=== PATIENT | female | born 1930 | race Caucasian/White ===

== ENCOUNTER 2018-09-08 16:20 | Inpatient (IN) ==
[2018-09-08] MEDS ORDERED: IOPAMIDOL 100 ML BOTTLE IV ONE (16:21)
[2018-09-08] MEDS ORDERED: PANTOPRAZOLE 40 MG VIAL IV ONE ×2 (16:26→20:47)
[2018-09-08] MEDS: HYDROmorphone 2 MG/ML VIAL IV PRN ×3 (16:35→23:59)
--- NOTE | 2018-09-08 16:38 | Emergency Department Note ---
Abdominal Pain HPI - General Source: patient, family Mode of arrival: ambulatory Limitations: no limitations <Asuncion Griggs - Last Filed: 09/08/18 16:36> <KomalClaudia jarrett Mukul - Last Filed: 09/08/18 22:09> - General Chief Complaint: Abdominal Pain Stated Complaint: abd pain Time Seen by Provider: 09/08/18 16:26 - History of Present Illness HPI Narrative: 88-year-old female presents with abdominal pain for the last several months but worse over the last few days. States she has burning from her mouth down to her rectum. Severe epigastric burning. She does see a GI specialist but has not actually seen them, they state that they have called in some lab work and put her on some Prevacid but it is not helping. She also fell August 23 and has a right humerus fracture. She states her arm pain is manageable but the GI tract pain is severe and is so bad that she does not want to live anymore. States she just cannot take this pain. She was brought in by her son who is concerned about her continued comments about wanting to leave this world due to pain.She does state that she is tired from it although she does not have a specific specific plan to harm herself she states she just does not care whether she may consider not because she is 88 years old and she is tired of living and so much pain. No fever or chills. No nausea, vomiting, or diarrhea. States sometimes at night she will vomit but has not recently. When she vomits she describes it as her she is chocolate syrup. She is supposed to see her GI provider on September 10 although she is not sure if that appointment is actually set up. (Asuncion Griggs) - Related Data Home Medications Medication Instructions Recorded Confirmed Lacto.acidophilus-Bif.animalis PO QDAY 01/04/17 01/04/17 amlodipine 2.5 mg tablet 2.5 mg PO QDAY 01/04/17 09/08/18 cholecalciferol (vitamin D3) PO QDAY 01/04/17 01/04/17 ferrous gluconate 324 mg (36 mg 324 mg PO QDAY 01/04/17 09/08/18 iron) tablet irbesartan 300 1 tab PO QDAY 07/20/17 03/24/19 mg-hydrochlorothiazide 12.5 mg tablet magnesium 1 tab PO QDAY 01/04/17 09/08/18 potassium PO 01/04/17 01/04/17 vitamin B complex tablet 1 tab-cap PO QDAY 01/04/17 09/08/18 Allergies Allergy/AdvReac Type Severity Reaction Status Date / Time Sulfa (Sulfonamide Allergy Unknown Unknown Verified 09/08/18 16:27 Antibiotics) Review of Systems All systems ED: reviewed and negative except as stated. <Asuncion Griggs - Last Filed: 09/08/18 16:36> Abdominal Pain PMH - Past Medical History Medical history: Reports: hypertension, other (urinary tract infection) Family history: Reports: no significant family history - Social History Smoking status: Never smoker Alcohol use: Reports: None Drug use: Reports: none <Asuncion Griggs - Last Filed: 09/08/18 16:36> - Past Medical History [facility] Narrative: Medical History (Last Reviewed 01/30/17 @ 10:18 by Saida Lazcano RN) Mild mitral regurgitation (Chronic) Osteoporosis (Chronic) History of bladder infections (Chronic) Anemia (Chronic) Hay fever (Chronic) Bronchitis (Chronic) Tuberculosis (Chronic) Whooping cough (Chronic) Mumps (Chronic) Measles (Chronic) Chronic diastolic (congestive) heart failure (Chronic) Chronic kidney disease, stage II (mild) (Chronic) Unspecified asthma (Chronic) Hyperlipidemia (Chronic) Hypertension (Chronic) Bladder pain (Acute) Urinary tract infection (Acute) Past Surgical History (Last Reviewed 01/30/17 @ 10:18 by Saida Lazcano RN) History of bladder surgery (Chronic ~2008) History of uterine suspension procedure (Acute) History of appendectomy (Chronic) History of tonsillectomy (Chronic) (Asuncion Griggs) Physical Exam Limitations: no limitations General appearance: alert Head: atraumatic, normocephalic, normal inspection Eye: Present: normal appearance. Absent: conjunctival injection ENT: mucous membranes moist Neck: Present: normal inspection, trachea midline Chest: Present: symmetric chest wall rise Respiratory: Present: normal lung sounds bilaterally. Absent: respiratory distress, rales/crackles, wheezes, stridor, accessory muscle use Cardiovascular: Present: regular rate, normal heart sounds Abdominal: Present: soft, normal bowel sounds. Absent: distention, tenderness, guarding, mass Extremities: Present: normal capillary refill. Absent: normal inspection (Right arm in sling and diffuse tenderness to right humerus, minimal edema.) Neurological: Present: alert, oriented X3 Psychiatric: Present: depressed. Absent: poor eye contact Skin: Present: warm, dry, intact <Asuncion Griggs - Last Filed: 09/08/18 16:36> Vital Signs Temperature 99.5 F H 09/08/18 16:21 Pulse Rate 97 H 09/08/18 16:21 Respiratory Rate 22 09/08/18 16:21 Blood Pressure 190/102 09/08/18 16:21 Pulse Oximetry (%) 95 09/08/18 16:21 Temperature 98.8 F 09/08/18 18:01 Pulse Rate 86 09/08/18 21:51 Respiratory Rate 19 09/08/18 21:46 Blood Pressure 161/72 09/08/18 21:46 Pulse Oximetry (%) 96 09/08/18 21:51 Abdominal Pain - Lab Data Lab results reviewed: Yes I reviewed the patient's lab results. Result diagrams: 09/08/18 16:42 09/08/18 16:42 - Radiology Data Radiology results reviewed: Yes I reviewed the patient's radiology results. <Claudia Sauceda - Last Filed: 09/08/18 22:09> - [facility] Narrative Medical decision making narrative: Asuncion Griggs provided pt history and assessment at the end of her shift, this provider to continue care. Pt is not on home O2 and arrives with 88% SOP2 on room air. Pt was with severe pain from epigastric to rectum. On palpation all pain is located subster nal/epigastric area. Pt was originally provided nasal cannula O2 at 2L which increased her to 98%. Pt was provided 0.5 mg Dilaudid coupled with 4 mg Zofran. This helped reduce patient's pain. She did need to be redosed an hour later, this dose helped her relax to the point she could sleep. Patient's vitals fairly steady heart rate 84, SPO2 98% on 2 L oxygen, blood pressure 170/75 Consulted with who advised he would keep her overnight in observation and follow-up with her in the morning. (Claudia Sauceda) - Lab Data Lab Results 09/08/18 09/08/18 09/08/18 Range/Units 16:42 16:42 17:37 WBC 7.9 (4.5-11.0) K/mcL RBC 3.39 L (4.00-5.20) M/mcL Hgb 10.1 L (12.0-15.0) g/dL Hct 31.1 L (36.0-48.0) % MCV 91.6 (80.0-100.0) fL MCH 29.9 (26.0-34.0) pg MCHC 32.6 (31.0-36.0) g/dL RDW 15.2 H (11.5-14.5) % Plt Count 282 (140-440) K/mcL MPV 8.5 (7.4-10.4) fL Gran % 76.8 (38.0-78.0) % Lymph % (Auto) 13.4 L (15.5-49.0) % [place] % (Auto) 8.0 (1.0-12.0) % Eos % (Auto) 1.4 (0.0-7.0) % Baso % (Auto) 0.4 (0.0-2.0) % Gran # 6.1 (1.8-8.0) K/mcL Lymph # (Auto) 1.1 L (1.5-4.8) K/mcL [place] # (Auto) 0.6 (0.1-0.9) K/mcL Eos # (Auto) 0.1 (0.0-0.7) K/mcL Baso # (Auto) 0 (0.0-0.3) K/mcL Sodium 139 (133-145) mmol/L Potassium 3.7 (3.3-5.1) mmol/L Chloride 97 (96-108) mmol/L Carbon Dioxide 32 H (22-30) mmol/L Anion Gap 10.0 (8-16) BUN 13 (8-23) mg/dl Creatinine 1.0 (0.6-1.1) mg/dl GFR Calculation 50 Glucose 127 H (70-105) mg/dL Calcium 10.0 (8.6-10.4) mg/dl Total Bilirubin 0.4 (0.0-1.0) mg/dL AST 17 (0-37) U/l ALT 14 (0-40) U/l Alkaline Phosphatase 73 (39-117) U/L Total Protein 7.1 (5.9-8.4) gm/dL Albumin 4.0 (3.2-5.2) gm/dL Globulin 3.1 (2.2-3.7) gm/dL Albumin/Globulin Ratio 1.3 (1.0-2.3) Lipase 41 (7-60) U/L Urine Color Yellow Urine Appearance Cloudy Urine pH 9.0 (5.0-9.0) Ur Specific [place] 1.014 (1.000-1.035) Urine Protein Neg (NEG) mg/dL Urine Glucose (UA) Negative (NEG) mg/dL Urine Ketones Neg (NEG) mg/dL Urine Occult Blood Neg (<0.03) mg/dL Urine Nitrate Neg (NEG) Urine Bilirubin Neg (NEG) mg/dL Urine Urobilinogen Neg (NEG) mg/dL Ur Leukocyte Esterase Neg (NEG) /uL Ur Culture Indicated? No - Radiology Data Chest x-ray: TECHNIQUE: AP chest x-ray,portable upright COMPARISON: Previous chest x-rays dated 04/26/2018, 04/15/2009 FINDINGS:Very large hiatal hernia. This is essentially unchanged. Lungs are negative. No parenchymal infiltrate or mass. No focal abnormality. Heart size and vascularity are within normal limits. No pulmonary edema or pulmonary congestion. Incidental note is made of right convex thoracic scoliosis IMPRESSION: 1. Large hiatal hernia 2. Right convex thoracic scoliosis 3. No acute abnormality Abdominal Ct with contrast: IMPRESSION: 1. Large fluid-filled hiatal hernia with most of the stomach in the chest 2. Two benign hepatic cysts. These are unchanged since 2016 3. Sigmoid diverticulosis. No evidence for diverticulitis 4. Severe lower lumbar degenerative facet arthropathy (Claudia Sauceda) Disposition <Asuncion Griggs - Last Filed: 09/08/18 16:36> Pt seen by STRINGED INSTRUMENT REPAIRER/PA only: No (Debone Supervisor) Time of Disposition: 22:09 <Claudia Sauceda - Last Filed: 09/08/18 22:09> Clinical Impression: Hiatal hernia, Hypoxia, Epigastric abdominal pain Disposition: Xfer As Outpt/Obs ([facility]) Condition: Fair
[2018-09-08] MEDS ORDERED: ONDANSETRON 4 MG/2 ML VIAL IV ONE ×2 (17:01→18:13)
[2018-09-08] MEDS ORDERED: 0.9 % SODIUM CHLORIDE 1,000 ML IV ONE ×2 (17:01→18:35)
[2018-09-08 17:17] LABS: Basophils # (Auto) 0 K/mcL (0.0-0.3); Basophils % (Auto) 0.4 % (0.0-2.0); Eosinophils # (Auto) 0.1 K/mcL (0.0-0.7); Eosinophils % (Auto) 1.4 % (0.0-7.0); Granulocytes % (Auto) 76.8 % (38.0-78.0); Lymphocytes # (Auto) 1.1 K/mcL (1.5-4.8); Lymphocytes % (Auto) 13.4 % (15.5-49.0); Mean Cell Volume 91.6 fL (80.0-100.0); Mean Corpuscular HGB Conc 32.6 g/dL (31.0-36.0); Monocytes # (Auto) 0.6 K/mcL (0.1-0.9); Platelet Count 282 K/mcL (140-440); RBC 3.39 M/mcL (4.00-5.20); Red Cell Distribution Width 15.2 % (11.5-14.5)
[2018-09-08 17:31] LABS: ALT/SGPT 14 U/l (0-40); Albumin/Globulin Ratio 1.3 (1.0-2.3); Alkaline Phosphatase 73 U/L (39-117); Blood Urea Nitrogen 13 mg/dl (8-23); Lipase 41 U/L (7-60)
[2018-09-08 18:23] LABS: Appearance,Urine CLOUDY; Bilirubin,Urine NEG (NEG); Color,Urine YELLOW; Glucose,Urine (UA) NEGATIVE (NEG); Leukocyte Esterase,Urine NEG /uL (NEG); Protein,Urine NEG (NEG); Specific Gravity,Urine 1.014 (1.000-1.035); Urine Blood NEG mg/dL (<0.03); Urobilinogen,Urine NEG (NEG)
--- NOTE | 2018-09-08 18:25 | XRay Report ---
INDICATION: Cough. Fever. TECHNIQUE: AP chest x-ray,portable upright COMPARISON: Previous chest x-rays dated 04/26/2018, 04/15/2009 FINDINGS:Very large hiatal hernia. This is essentially unchanged. Lungs are negative. No parenchymal infiltrate or mass. No focal abnormality. Heart size and vascularity are within normal limits. No pulmonary edema or pulmonary congestion. Incidental note is made of right convex thoracic scoliosis IMPRESSION: 1. Large hiatal hernia 2. Right convex thoracic scoliosis 3. No acute abnormality Interpreted and Authenticated by: Ez Puga 09/08/18
--- NOTE | 2018-09-08 20:02 | Cat Scan Report ---
CLINICAL INFORMATION: Severe abdominal pain COMPARISON: Previous examination dated 07/02/2015 TECHNIQUE: Axial images were obtained through the abdomen and pelvis. Sagittally and coronally reformatted images. 80 mL contrast material injected intravenously. Oral contrast material was not administered FINDINGS: Lung bases are negative. No parenchymal infiltrate or mass. No pleural fluid. No pericardial fluid. There is cardiomegaly. There is a large hiatal hernia with almost the entire stomach in the chest. The hiatal hernia is fluid-filled. Small bowel is negative. No mechanical small bowel obstruction. The colon is negative. There is sigmoid diverticulosis but no evidence for diverticulitis. No detectable colonic mass. No appendicitis. Liver is benign. There are two hepatic cysts. These are unchanged since 2016. No new hepatic mass. Liver contour is smooth. There is no ascites. Gallbladder is present. No calcified gallstones. No dilated bile ducts. Negative spleen. No splenomegaly. There are calcifications consistent with old granulomatous disease. Negative pancreas. No pancreatic mass. No peripancreatic abnormality. Negative adrenal glands. Kidneys are negative. No solid or cystic mass. No hydronephrosis or hydroureter. There is calcification of the abdominal aorta. No abdominal aortic aneurysm. There is calcification at the origin of the superior mesenteric artery but there is no evidence for stenosis. Uterus is present. There is no adnexal mass. No free intraperitoneal fluid. No localized fluid collections. There is no intra-abdominal abscess. No biliary or portal venous gas. There is no pneumatosis. No acute lumbar compression fracture. Sacrum and pelvis are negative. No fracture. No hip fracture. There is mild multilevel degenerative disc disease. There is severe degenerative facet arthropathy in the lower lumbar spine. IMPRESSION: 1. Large fluid-filled hiatal hernia with most of the stomach in the chest 2. Two benign hepatic cysts. These are unchanged since 2016 3. Sigmoid diverticulosis. No evidence for diverticulitis 4. Severe lower lumbar degenerative facet arthropathy The exam was performed using radiation dose optimization techniques including, but not limited to, automated exposure control, adjustment of the mA and/or kV according to patient size and use of iterative reconstruction technique. Interpreted and Authenticated by: Ez Puga 09/08/18
[2018-09-08] MEDS ORDERED: HYDROmorphone 2 MG/ML VIAL IV PRN (20:47)
[2018-09-08] MEDS: ONDANSETRON 4 MG/2 ML VIAL IV PRN (23:11)
[2018-09-09] MEDS: ONDANSETRON 4 MG/2 ML VIAL IV PRN ×3 (03:15→13:15)
[2018-09-09] MEDS: HYDROmorphone 2 MG/ML VIAL IV PRN (06:17)
[2018-09-09] MEDS: PROMETHAZINE 25 MG/ML VIAL IV PRN ×3 (08:51→23:54)
[2018-09-09] MEDS: SUCRALFATE 1 GM/10 ML ORAL.SUSP PO SCH ×3 (11:55→23:53)
[2018-09-09] MEDS: PANTOPRAZOLE 40 MG VIAL IV SCH (16:12)
[2018-09-09] MEDS ORDERED: CALCIUM CARBONATE 500 MG TAB.CHEW CHEWED PRN (16:24)
[2018-09-09] MEDS ORDERED: fentaNYL 100 MCG/2 ML VIAL IV PRN ×2 (17:22→17:24)
--- NOTE | 2018-09-09 18:38 | General Surg History&Physical ---
History of Present Illness Patient information: Note initiated : 09/09/18 at 6:36 pm Service Date, if different from initiated Date: [] Patient: Maricruz Fang a 88 y/o F admitted on 09/08/18 for abd pain. Chief Complaint: [] HPI: Ms. Fang is a 88 year old F admitted with recurrent severe upper abdominal and substernal pain with emesis of coffee ground material. She has not had chelita hematemesis or melena. She has had pain across her mid abdomen in the substernal area for many weeks. Her by mouth intake has been poor. She has been progressively weaker. She had similar symptoms in November and had gallbladder ultrasound and barium swallow which were normal except she was noted to have a large hiatal hernia. Esophageal motility was interpreted as being normal. She had an upper endoscopy 2 years ago. Patient is admitted for control of pain and the severe reflux. She is clinically depressed and was very vocal about possibility of having assisted suicide carried out. She is advised that I would not consider that for her at this time since she does not have any terminal condition. Her main concern is that her pain be controlled. Review of Systems - Constitutional anorexia, fatigue, malaise, weakness, weight loss - EENT Nose, mouth and throat: abnormal hearing, neck pain, sore throat - Cardiovascular no chest pain at rest, no chest pain with activity, no dyspnea on exertion, no palpatations, no rapid heart rate, no syncope - Respiratory cough, no pain with cough - Gastrointestinal abdominal pain, bloating, dyspepsia, dysphagia, early satiety, heartburn, nausea, vomiting - Genitourinary Genitourinary: dysuria, nocturia, urinary frequency, urinary urgency - Musculoskeletal abnormal gait, arthralgias, stiffness - Integumentary no pruritus, no rash - Neurological abnormal gait, abnormal hearing, confusion, numbness, vertigo - Psychiatric abnormal sleep pattern, anxiety, depression, suicidal ideation - Endocrine fatigue, palpitations - Hematologic/Lymphatic no easy bleeding, no easy bruising, no lymphadenopathy - Allergic/Immunologic tongue swelling, throat swelling, uticaria, wheezing, lip swelling Past History Past medical history: Hypertension Chronic urinary tract infection Chronic depression Past surgical history: Bladder suspension surgery Past family history: Diabetes mellitus Past social history: Never smoker Denies alcohol use Denies drug use Medications and Allergies Home Medications Medication Instructions Recorded Confirmed Type Lacto.acidophilus-Bif.animalis 1 cap PO QDAY 01/04/17 09/09/18 History amlodipine 2.5 mg tablet 2.5 mg PO QDAY 01/04/17 09/08/18 History cholecalciferol (vitamin D3) 1 tab PO QDAY 01/04/17 09/09/18 History ferrous gluconate 324 mg (36 mg 324 mg PO QDAY 01/04/17 09/08/18 History iron) tablet irbesartan 300 1 tab PO QDAY 01/04/17 09/08/18 History mg-hydrochlorothiazide 12.5 mg tablet magnesium 1 tab PO QDAY 01/04/17 09/08/18 History potassium 1 tab PO QDAY 01/04/17 09/09/18 History vitamin B complex tablet 1 tab-cap PO QDAY 01/04/17 09/08/18 History Allergies Allergy/AdvReac Type Severity Reaction Status Date / Time Sulfa (Sulfonamide Allergy Unknown Unknown Verified 09/08/18 16:27 Antibiotics) Exam Temp Pulse Resp BP Pulse Ox 99.2 F H 89 20 166/81 90 09/09/18 15:09 09/09/18 15:09 09/09/18 15:09 09/09/18 15:09 09/09/18 15:09 - General physical appearance well developed, well nourished, no distress - Eyes PERRL, normal ocular movement - ENT normal pinna, normal nares, normal mucosa, no hearing loss, no congestion - Head Head exam IM: Present: atraumatic, normal inspection, normocephalic - Neck no masses, no bruits, trachea midline, no lymphadenopathy, no venous distension - Cardiovascular Cardiovascular exam IM: Present: normal rate and rhythm, RRR, +S1, +S2. 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
[2018-09-09] MEDS: METOCLOPRAMIDE 10 MG/2 ML VIAL IV SCH (21:58)
[2018-09-09] MEDS: MAG HYDROX/AL HYDROX/SIMETH 30 ML ORAL.SUSP PO PRN (23:20)
[2018-09-10] MEDS: SUCRALFATE 1 GM/10 ML ORAL.SUSP PO SCH ×4 (06:24→23:19)
[2018-09-10] MEDS: PANTOPRAZOLE 40 MG VIAL IV SCH ×2 (08:15→17:05)
[2018-09-10] MEDS: METOCLOPRAMIDE 10 MG/2 ML VIAL IV SCH ×4 (08:15→20:51)
[2018-09-10] MEDS: ONDANSETRON 4 MG/2 ML VIAL IV PRN (08:16)
[2018-09-10] MEDS ORDERED: SCOPOLAMINE 1 PATCH PATCH TOPICAL SCH (12:00)
[2018-09-10] MEDS ORDERED: fentaNYL 25 MCG PATCH TOPICAL SCH (12:00)
[2018-09-10 13:20] LABS: Basophils # (Auto) 0 K/mcL (0.0-0.3); Basophils % (Auto) 0.2 % (0.0-2.0); Eosinophils # (Auto) 0.1 K/mcL (0.0-0.7); Eosinophils % (Auto) 1.4 % (0.0-7.0); Granulocytes % (Auto) 82.3 % (38.0-78.0); Lymphocytes # (Auto) 0.8 K/mcL (1.5-4.8); Lymphocytes % (Auto) 8.9 % (15.5-49.0); Mean Cell Volume 91.8 fL (80.0-100.0); Mean Corpuscular HGB Conc 32.6 g/dL (31.0-36.0); Monocytes # (Auto) 0.7 K/mcL (0.1-0.9); Monocytes % (Auto) 7.2 % (1.0-12.0); Platelet Count 222 K/mcL (140-440); Red Cell Distribution Width 15.7 % (11.5-14.5)
[2018-09-10 14:57] LABS: ALT/SGPT 11 U/l (0-40); Albumin 3.3 gm/dL (3.2-5.2); Albumin/Globulin Ratio 1.2 (1.0-2.3); Alkaline Phosphatase 57 U/L (39-117); Bilirubin,Direct < 0.2 mg/dL (0.0-0.3); Blood Urea Nitrogen 17 mg/dl (8-23); Gamma Glutamyl Transpeptidase 15 U/L (5-36); Uric Acid 4.2 mg/dL (2.5-8.0)
--- NOTE | 2018-09-10 18:14 | General Surgery Progress Note ---
Subjective Patient reports: still having pain, flatus, no bowel movement, nausea, afebrile Narrative: Note initiated : 09/10/18 at 6:14 pm Service Date, if different from initiated Date: [] Patient: Maricruz Fang 88 y/o F admitted on 09/09/18 for abd pain. Chief Complaint: [Patient has been relatively well during the night. She still complains of upper abdominal pain and nausea. She had these complaints through the night.. Discussed with her the need to try transdermal scopolamine and switch her analgesic medication to Fentanyl. She has been afebrile. White blood count 9.1, hemoglobin 8.7, hematocrit 26.6.] Objective Temp Pulse Resp BP Pulse Ox 98.5 F 80 20 150/80 90 09/10/18 16:00 09/10/18 16:00 09/10/18 16:00 09/10/18 16:00 09/10/18 16:00 - Additional Data Intake & Output - Last 24 hours: Intake & Output 09/08/18 09/09/18 09/10/18 09/11/18 05:59 05:59 05:59 05:59 Intake Total 2120 475 200 Output Total 675 525 502 Balance 1445 -50 -302 Weight 148 lb 8 oz 146 lb - General physical appearance moderate distress, moderate pain, other (right arm pain. ) - Eyes PERRL, normal ocular movement - ENT normal pinna, normal nares, normal mucosa, no congestion, decreased hearing - Neck no masses, no bruits, trachea midline, no lymphadenopathy, no venous distension - Respiratory normal expansion, normal respiratory effort, clear to auscultation - Cardiovascular Cardiovascular exam: Present: normal rate and rhythm, RRR, +S1, +S2. Absent: JVD, tachycardia - Abdomen tender (epigastric tenderness; good active bowel sounds; no abdominal distention) - Integumentary no rash, no growths, no abnormal pigmentation - Neurologic normal coordination, normal sensation, confused (patient is intermittently confused but is well-oriented at this time.) - Musculoskeletal other (unsteady gait and needs standby assistance) - Psychiatric oriented to time, oriented to person, oriented to place, speech is normal, memory intact, other (intermittently confused but easily reoriented; element of major depression) - Labs 09/12/18 05:18 09/13/18 04:32 Diabetes panel 09/10/18 Range/Units 12:30 Sodium 140 (133-145) mmol/L Potassium 3.5 (3.3-5.1) mmol/L Chloride 103 (96-108) mmol/L Carbon Dioxide 25 (22-30) mmol/L BUN 17 (8-23) mg/dl Creatinine 0.7 (0.6-1.1) mg/dl Glucose 112 H (70-105) mg/dL Calcium 8.9 (8.6-10.4) mg/dl AST 16 (0-37) U/l ALT 11 (0-40) U/l Alkaline Phosphatase 57 (39-117) U/L Total Protein 6.0 (5.9-8.4) gm/dL Albumin 3.3 (3.2-5.2) gm/dL Triglycerides 87 (<150) mg/dl Calcium panel 09/10/18 Range/Units 12:30 Calcium 8.9 (8.6-10.4) mg/dl Phosphorus 2.3 L (2.7-4.5) mg/dL Albumin 3.3 (3.2-5.2) gm/dL Pituitary panel 09/10/18 Range/Units 12:30 Sodium 140 (133-145) mmol/L Potassium 3.5 (3.3-5.1) mmol/L Chloride 103 (96-108) mmol/L Carbon Dioxide 25 (22-30) mmol/L BUN 17 (8-23) mg/dl Creatinine 0.7 (0.6-1.1) mg/dl Glucose 112 H (70-105) mg/dL Calcium 8.9 (8.6-10.4) mg/dl Adrenal panel 09/10/18 Range/Units 12:30 Sodium 140 (133-145) mmol/L Potassium 3.5 (3.3-5.1) mmol/L Chloride 103 (96-108) mmol/L Carbon Dioxide 25 (22-30) mmol/L BUN 17 (8-23) mg/dl Creatinine 0.7 (0.6-1.1) mg/dl Glucose 112 H (70-105) mg/dL Calcium 8.9 (8.6-10.4) mg/dl Total Bilirubin 0.4 (0.0-1.0) mg/dL AST 16 (0-37) U/l ALT 11 (0-40) U/l Alkaline Phosphatase 57 (39-117) U/L Total Protein 6.0 (5.9-8.4) gm/dL Albumin 3.3 (3.2-5.2) gm/dL Assessment and Plan (1) 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 Fentanyl 12-25 g transdermal every 7 days (2) Epigastric abdominal pain Status: Resolved Assessment and plan: Continue on present medications Scheduled for upper endoscopy (3) Hematemesis with nausea Status: Resolved Assessment and plan: Scopolamine transdermal every 3 days Fentanyl 25 g every 3 days transdermal (4) History of bladder infections Status: Chronic (5) Hypertension Status: Chronic - Time Spent With Patient Total time spent is greater than 50% in coordination of care (as documented) at patient's floor/unit and/or counseling patient:
[2018-09-10] MEDS: MAG HYDROX/AL HYDROX/SIMETH 30 ML ORAL.SUSP PO PRN (21:06)
[2018-09-11] MEDS: SUCRALFATE 1 GM/10 ML ORAL.SUSP PO SCH ×4 (05:00→23:26)
[2018-09-11 06:50] LABS: Basophils # (Auto) 0 K/mcL (0.0-0.3); Basophils % (Auto) 0.3 % (0.0-2.0); Eosinophils # (Auto) 0.3 K/mcL (0.0-0.7); Eosinophils % (Auto) 2.7 % (0.0-7.0); Granulocytes % (Auto) 72.9 % (38.0-78.0); Lymphocytes # (Auto) 1.4 K/mcL (1.5-4.8); Lymphocytes % (Auto) 14.9 % (15.5-49.0); Mean Cell Volume 93.2 fL (80.0-100.0); Mean Corpuscular HGB Conc 32.4 g/dL (31.0-36.0); Monocytes # (Auto) 0.8 K/mcL (0.1-0.9); Monocytes % (Auto) 9.2 % (1.0-12.0); Platelet Count 206 K/mcL (140-440); RBC 3.03 M/mcL (4.00-5.20); Red Cell Distribution Width 15.8 % (11.5-14.5)
[2018-09-11 07:19] LABS: ALT/SGPT 12 U/l (0-40); Albumin 3.3 gm/dL (3.2-5.2); Albumin/Globulin Ratio 1.1 (1.0-2.3); Alkaline Phosphatase 63 U/L (39-117); Bilirubin,Direct < 0.2 mg/dL (0.0-0.3); Blood Urea Nitrogen 17 mg/dl (8-23); Gamma Glutamyl Transpeptidase 15 U/L (5-36); Uric Acid 4.4 mg/dL (2.5-8.0)
[2018-09-11] MEDS: PANTOPRAZOLE 40 MG VIAL IV SCH ×2 (08:12→17:11)
[2018-09-11] MEDS: METOCLOPRAMIDE 10 MG/2 ML VIAL IV SCH ×4 (08:12→20:26)
[2018-09-11] MEDS ORDERED: POTASSIUM PHOSPHATE 40 MEQ in DEXTROSE 5% IN WATER 500 ML IV ONE (13:14)
--- NOTE | 2018-09-11 15:34 | General Surgery Progress Note ---
Subjective Patient reports: feels better, pain is less, tolerating a regular diet, flatus, bowel movement, afebrile Narrative: Note initiated : 09/11/18 at 3:32 pm Service Date, if different from initiated Date: [] Patient: Maricruz Fang 88 y/o F admitted on 09/09/18 for abd pain. Chief Complaint: [patient feels much better. Her pain and nausea symptoms have essentially resolved. She has been somewhat somnolent but is more arousable today. She denies epigastric pain. Discussed with patient the plan to proceed with upper endoscopy in the morning.] Objective Temp Pulse Resp BP Pulse Ox 97.6 F 89 18 149/75 97 09/11/18 12:00 09/11/18 12:00 09/11/18 12:00 09/11/18 12:00 09/11/18 12:00 - Additional Data Intake & Output - Last 24 hours: Intake & Output 09/09/18 09/10/18 09/11/18 09/12/18 05:59 05:59 05:59 05:59 Intake Total 2120 475 300 360 Output Total 675 525 678 300 Balance 1445 -50 -378 60 Weight 148 lb 8 oz 146 lb 141 lb 8 oz 141 lb 8 oz - General physical appearance well developed, well nourished, no distress - Eyes PERRL, normal ocular movement - ENT normal pinna, normal nares, normal mucosa, no congestion, decreased hearing - Neck no masses, no bruits, trachea midline, no lymphadenopathy, no venous distension - Respiratory normal expansion, normal respiratory effort, clear to auscultation - Cardiovascular Cardiovascular exam: Present: normal rate and rhythm, RRR, +S1, +S2. Absent: JVD, tachycardia - Abdomen non tender (patient does not have any abdominal tenderness at this time. She does not have any distention. She has good active bowel sounds) - Integumentary no rash, no growths, no abnormal pigmentation - Neurologic normal coordination, normal sensation - Musculoskeletal normal gait, normal posture - Psychiatric oriented to time, oriented to person, oriented to place, speech is normal, memory intact - Labs 09/11/18 04:54 09/11/18 04:54 Diabetes panel 09/11/18 Range/Units 04:54 Sodium 139 (133-145) mmol/L Potassium 4.2 (3.3-5.1) mmol/L Chloride 103 (96-108) mmol/L Carbon Dioxide 22 (22-30) mmol/L BUN 17 (8-23) mg/dl Creatinine 0.7 (0.6-1.1) mg/dl Glucose 101 (70-105) mg/dL Calcium 9.1 (8.6-10.4) mg/dl AST 19 (0-37) U/l ALT 12 (0-40) U/l Alkaline Phosphatase 63 (39-117) U/L Total Protein 6.4 (5.9-8.4) gm/dL Albumin 3.3 (3.2-5.2) gm/dL Triglycerides 100 (<150) mg/dl Calcium panel 09/11/18 Range/Units 04:54 Calcium 9.1 (8.6-10.4) mg/dl Phosphorus 2.5 L (2.7-4.5) mg/dL Albumin 3.3 (3.2-5.2) gm/dL Pituitary panel 09/11/18 Range/Units 04:54 Sodium 139 (133-145) mmol/L Potassium 4.2 (3.3-5.1) mmol/L Chloride 103 (96-108) mmol/L Carbon Dioxide 22 (22-30) mmol/L BUN 17 (8-23) mg/dl Creatinine 0.7 (0.6-1.1) mg/dl Glucose 101 (70-105) mg/dL Calcium 9.1 (8.6-10.4) mg/dl Adrenal panel 09/11/18 Range/Units 04:54 Sodium 139 (133-145) mmol/L Potassium 4.2 (3.3-5.1) mmol/L Chloride 103 (96-108) mmol/L Carbon Dioxide 22 (22-30) mmol/L BUN 17 (8-23) mg/dl Creatinine 0.7 (0.6-1.1) mg/dl Glucose 101 (70-105) mg/dL Calcium 9.1 (8.6-10.4) mg/dl Total Bilirubin 0.4 (0.0-1.0) mg/dL AST 19 (0-37) U/l ALT 12 (0-40) U/l Alkaline Phosphatase 63 (39-117) U/L Total Protein 6.4 (5.9-8.4) gm/dL Albumin 3.3 (3.2-5.2) gm/dL Assessment and Plan (1) Gastroesophageal reflux disease due to diaphragmatic hernia Status: Acute Assessment and plan: Patient is stable and improved We'll schedule for upper endoscopy in the morning Current Visit: Yes (2) Epigastric abdominal pain Status: Resolved Current Visit: Yes (3) Hematemesis with nausea Status: Acute Assessment and plan: Scopolamine transdermal every 3 days Fentanyl 25 g every 3 days transdermal Current Visit: Yes (4) History of bladder infections Status: Chronic Current Visit: No (5) Hypertension Status: Chronic Current Visit: No - Time Spent With Patient Total time spent is greater than 50% in coordination of care (as documented) at patient's floor/unit and/or counseling patient:
[2018-09-11] MEDS ORDERED: MAGNESIUM HYDROXIDE 30 ML ORAL.SUSP PO SCH (21:00)
[2018-09-12] MEDS: SUCRALFATE 1 GM/10 ML ORAL.SUSP PO SCH ×3 (05:50→17:44)
[2018-09-12 06:52] LABS: Basophils # (Auto) 0 K/mcL (0.0-0.3); Basophils % (Auto) 0.2 % (0.0-2.0); Eosinophils # (Auto) 0.2 K/mcL (0.0-0.7); Eosinophils % (Auto) 2.5 % (0.0-7.0); Lymphocytes # (Auto) 0.8 K/mcL (1.5-4.8); Lymphocytes % (Auto) 9.2 % (15.5-49.0); Mean Cell Volume 92.8 fL (80.0-100.0); Mean Corpuscular HGB Conc 32.4 g/dL (31.0-36.0); Monocytes # (Auto) 0.8 K/mcL (0.1-0.9); Monocytes % (Auto) 10.1 % (1.0-12.0); Platelet Count 198 K/mcL (140-440); RBC 2.83 M/mcL (4.00-5.20); Red Cell Distribution Width 15.6 % (11.5-14.5)
[2018-09-12] MEDS: METOCLOPRAMIDE 10 MG/2 ML VIAL IV SCH ×4 (07:23→20:41)
[2018-09-12] MEDS: PANTOPRAZOLE 40 MG VIAL IV SCH ×2 (07:24→16:58)
[2018-09-12 07:34] LABS: ALT/SGPT 12 U/l (0-40); Albumin 3.1 gm/dL (3.2-5.2); Albumin/Globulin Ratio 1.1 (1.0-2.3); Alkaline Phosphatase 63 U/L (39-117); Bilirubin,Direct < 0.2 mg/dL (0.0-0.3); Blood Urea Nitrogen 19 mg/dl (8-23); Gamma Glutamyl Transpeptidase 16 U/L (5-36); Uric Acid 4.1 mg/dL (2.5-8.0)
[2018-09-12] MEDS ORDERED: KETAMINE 100 MG/ML ML IV ONE (11:01)
[2018-09-12] MEDS ORDERED: MIDAZOLAM 2 MG/2 ML VIAL IV ONE (11:01)
[2018-09-12] MEDS ORDERED: PROPOFOL 200 MG/20 ML VIAL IV ONE (11:01)
[2018-09-12] MEDS ORDERED: fentaNYL 100 MCG/2 ML VIAL IV ONE (11:01)
--- NOTE | 2018-09-12 11:39 | Brief Operative Note ---
Date of procedure: 09/12/18 Pre-op diagnosis: epigastric and chest pain;chronic nausea Post-op diagnosis: other (large hiatal hernia with severe reflux;functional gastroparesis with retained gastric fluid; distal esophagitis) Procedure: EGD AND SUCTION OF 500CC GASTRIC FLUID Grafts/Implants: No Anesthesia: MAC Findings: LARGE HIATAL HERNIA WITH LARGE VOLUME RETAINED GASTRIC FLUID FILLING OVER 1/2 OF STOMACH ;FREE REFLUX INTO DISTAL ESOPHAGUS WITH MILD INFLAMMATION;DUODENUM WIDELY PATENT TO THIRD PORTION Complications: none Surgeon: Nia Reed Specimens Removed/Pathology: none sent Condition: stable Disposition: PACU
[2018-09-12] MEDS ORDERED: fentaNYL 100 MCG/2 ML VIAL IV PRN (11:50)
[2018-09-12] MEDS ORDERED: MAG HYDROX/AL HYDROX/SIMETH 30 ML ORAL.SUSP PO PRN (11:50)
[2018-09-12] MEDS ORDERED: PROMETHAZINE 25 MG/ML VIAL IV PRN (11:50)
[2018-09-12] MEDS ORDERED: CALCIUM CARBONATE 500 MG TAB.CHEW CHEWED PRN (11:50)
[2018-09-12] MEDS ORDERED: MAGNESIUM HYDROXIDE 30 ML ORAL.SUSP PO SCH (21:00)
[2018-09-13] MEDS: SUCRALFATE 1 GM/10 ML ORAL.SUSP PO SCH ×3 (05:14→12:01)
[2018-09-13 06:54] LABS: ALT/SGPT 11 U/l (0-40); Albumin 2.9 gm/dL (3.2-5.2); Alkaline Phosphatase 59 U/L (39-117); Bilirubin,Direct < 0.2 mg/dL (0.0-0.3); Blood Urea Nitrogen 17 mg/dl (8-23); Gamma Glutamyl Transpeptidase 16 U/L (5-36); Uric Acid 4.4 mg/dL (2.5-8.0)
[2018-09-13] MEDS: METOCLOPRAMIDE 10 MG/2 ML VIAL IV SCH ×2 (10:23→12:01)
[2018-09-13] MEDS: PANTOPRAZOLE 40 MG VIAL IV SCH (10:23)
[2018-09-13] MEDS ORDERED: fentaNYL 25 MCG PATCH TOPICAL SCH (12:00)
[2018-09-13] MEDS ORDERED: SCOPOLAMINE 1 PATCH PATCH TOPICAL SCH (12:00)
--- NOTE | 2018-09-13 12:44 | General Surgery Progress Note ---
Subjective Patient reports: feels better, pain is less, tolerating liquids well, flatus, bowel movement, afebrile Narrative: Note initiated : 09/13/18 at 12:42 pm Service Date, if different from initiated Date: [] Patient: Maricruz Fang 88 y/o F admitted on 09/09/18 for abd pain. Chief Complaint: [] Patient states that she feels much better. She has tolerated soft diet without difficulty. Her heartburn and pain significantly improved. Discussed with patient about plan to change her to swing bed status. Objective Temp Pulse Resp BP Pulse Ox 98.3 F 84 16 120/76 93 09/13/18 11:29 09/12/18 16:00 09/13/18 11:29 09/13/18 11:29 09/13/18 11:29 - Additional Data Intake & Output - Last 24 hours: Intake & Output 09/11/18 09/12/18 09/13/18 09/14/18 05:59 05:59 05:59 05:59 Intake Total 300 1510 430 Output Total 678 451 376 200 Balance -378 1059 54 -200 Weight 141 lb 8 oz 145 lb 146 lb 146 lb - Labs 09/12/18 05:18 09/13/18 04:32 Diabetes panel 09/13/18 Range/Units 04:32 Sodium 141 (133-145) mmol/L Potassium 3.9 (3.3-5.1) mmol/L Chloride 102 (96-108) mmol/L Carbon Dioxide 30 (22-30) mmol/L BUN 17 (8-23) mg/dl Creatinine 0.7 (0.6-1.1) mg/dl Glucose 123 H (70-105) mg/dL Calcium 8.7 (8.6-10.4) mg/dl AST 13 (0-37) U/l ALT 11 (0-40) U/l Alkaline Phosphatase 59 (39-117) U/L Total Protein 5.7 L (5.9-8.4) gm/dL Albumin 2.9 L (3.2-5.2) gm/dL Triglycerides 81 (<150) mg/dl Calcium panel 09/13/18 Range/Units 04:32 Calcium 8.7 (8.6-10.4) mg/dl Phosphorus 2.6 L (2.7-4.5) mg/dL Albumin 2.9 L (3.2-5.2) gm/dL Pituitary panel 09/13/18 Range/Units 04:32 Sodium 141 (133-145) mmol/L Potassium 3.9 (3.3-5.1) mmol/L Chloride 102 (96-108) mmol/L Carbon Dioxide 30 (22-30) mmol/L BUN 17 (8-23) mg/dl Creatinine 0.7 (0.6-1.1) mg/dl Glucose 123 H (70-105) mg/dL Calcium 8.7 (8.6-10.4) mg/dl Adrenal panel 09/13/18 Range/Units 04:32 Sodium 141 (133-145) mmol/L Potassium 3.9 (3.3-5.1) mmol/L Chloride 102 (96-108) mmol/L Carbon Dioxide 30 (22-30) mmol/L BUN 17 (8-23) mg/dl Creatinine 0.7 (0.6-1.1) mg/dl Glucose 123 H (70-105) mg/dL Calcium 8.7 (8.6-10.4) mg/dl Total Bilirubin 0.4 (0.0-1.0) mg/dL AST 13 (0-37) U/l ALT 11 (0-40) U/l Alkaline Phosphatase 59 (39-117) U/L Total Protein 5.7 L (5.9-8.4) gm/dL Albumin 2.9 L (3.2-5.2) gm/dL Assessment and Plan (1) Gastroesophageal reflux disease due to diaphragmatic hernia Status: Acute Assessment and plan: Patient is stable and improved Transferred to swing bed status Current Visit: Yes (2) Epigastric abdominal pain Status: Resolved Current Visit: Yes (3) Hematemesis with nausea Status: Resolved Assessment and plan: Scopolamine transdermal every 3 days Fentanyl 25 g every 3 days transdermal Current Visit: Yes (4) History of bladder infections Status: Chronic Current Visit: No (5) Hypertension Status: Chronic Current Visit: No - Time Spent With Patient Total time spent is greater than 50% in coordination of care (as documented) at patient's floor/unit and/or counseling patient:
--- NOTE | 2018-09-13 13:02 | Discharge Summary ---
Providers - Providers Patient information: Note initiated : 09/13/18 at 12:57 pm Service Date, if different from initiated Date: [] Patient: Maricruz Fang 88 y/o F admitted on 09/09/18 for abd pain. Chief Complaint: [] Date of admission: 09/08/18 Discharge date: 09/13/18 Attending physician: Nia Reed Hospitalization Hospital course: 88-year-old female admitted with recurrent severe upper abdominal and substernal pain with history of emesis of coffee ground material. She has had pain across her midabdomen many weeks. She has had poor by mouth intake and has become progressively worse. She had similar symptoms in November 2017 and gallbladder ultrasound and barium swallow were normal except for large hiatal hernia. She had an upper endoscopy 2 years ago that was unremarkable except for her hiatal hernia. Patient was admitted for control of pain and severe reflux. She was severely depressed and was very vocal about the possibility of having assisted suicide. Her main concern is that she have control of her pain. She also had a recent fall with fracture of her humerus. Patient was admitted and was started on IV hydration. She was given Reglan every 6 hours pantoprazole every 12 hours, sucralfate every 6 hours and was given fentanyl 25 g every 2-3 hours for pain. She received Zofran for nausea. The patient gradually had improvement. The nausea improved and the vomiting ceased. Her substernal pain resolved. She had upper endoscopy on 12 September which showed distal esophagitis which was healing and gastroparesis with a large volume of retained gastric contents which was primarily liquid. her pylorus was widely patent as was her duodenum. Patient is now stable. She is tolerating a soft diet without difficulty. Her pain is controlled however she needs more monitoring so she is being transferred to swing bed status for continued close monitoring over the next few days prior to discharging her home. Discharge diagnosis: hiatal hernia Secondary discharge diagnosis: Reflux esophagitis Gastroparesis History of recurrent bladder infection Hypertension Chronic depression Humeral fracture Reason for admission: hematemesis with recurrent nausea and vomiting Pertinent studies/significant findings: Esophagogastroduodenoscopy with evacuation of stomach Complications: None Exam Temp Pulse Resp BP Pulse Ox 98.3 F 84 16 120/76 93 09/13/18 11:29 09/12/18 16:00 09/13/18 11:29 09/13/18 11:29 09/13/18 11:29 - General physical appearance well developed, well nourished, no distress - Eyes PERRL, normal ocular movement - ENT normal pinna, normal nares, normal mucosa, no hearing loss, no congestion - Head Head exam IM: Present: atraumatic, normocephalic - Neck no masses, no bruits, trachea midline, no lymphadenopathy, no venous distension - Cardiovascular Cardiovascular exam IM: Present: normal rate and rhythm - Respiratory normal expansion, normal respiratory effort, clear to percussion, clear to auscultation - Abdomen Abdomen: Present: soft, non tender, bowel sounds Hernia: Present: none - Genitourinary Present: normal external genitalia - Integumentary Present: no rash, no growths, no abnormal pigmentation - Neurologic Present: normal coordination, normal sensation - Musculoskeletal Present: normal gait, normal posture - Psychiatric Present: oriented to time, oriented to person, oriented to place, speech is normal, memory intact Discharge Plan - Patient/Caregiver Discharge Instructions Activity: as per physical therapy Diet: Regular Diet - Follow up Plan Follow up with: Nia Reed MD [Physician] - 09/19/18 2:30 pm Wilfrid Sherwood MD [Primary Care Provider] - (as needed.) Disposition: Xfer As Swing Bed (TS) Prognosis: Fair Rehab Potential: Good I certify that the patient requires SNF services.: Yes Overall status at discharge: patient is progressing back to baseline Pending Studies Resuscitation Status Full Code Diet GI Soft/Transitional Start Kimberly Sep 12 1706 Fentanyl (Duragesic) 25 mcg TOPICAL Q72H [facility] Last Admin: 09/13/18 12:00 Dose: 25 mcg Documented by: ERICKA Magnesium Hydroxide (Milk Of Magnesia) 30 ml PO HS [facility] Last Admin: 09/12/18 20:41 Dose: 30 ml Documented by: NORMA Metoclopramide HCl (Reglan) 5 mg IV ACHS [facility] Last Admin: 09/13/18 12:01 Dose: 5 mg Documented by: Admin: 09/13/18 10:23 Dose: 5 mg Documented by: Admin: 09/12/18 20:41 Dose: 5 mg Documented by: Admin: 09/12/18 16:58 Dose: 5 mg Documented by: TALHA Pantoprazole Sodium (Protonix) 40 mg IV BIDAC [facility] Last Admin: 09/13/18 10:23 Dose: 40 mg Documented by: Admin: 09/12/18 16:58 Dose: 40 mg Documented by: TALHA Scopolamine (Transderm-Scop) 1 patch TOPICAL Q72H [facility] Admin: 09/13/18 12:01 Dose: 1 patch Documented by: ERICKA Sucralfate (Carafate) 1 gm PO Q6 [facility] Last Admin: 09/13/18 12:01 Dose: 1 gm Documented by: Admin: 09/13/18 05:14 Dose: 1 gm Documented by: Admin: 09/13/18 00:00 Dose: 1 gm Documented by: Admin: 09/12/18 17:44 Dose: 1 gm Documented by: Admin: 09/12/18 12:05 Dose: Not Given Documented by: TALHA Shift Summary 09/13/18 04:13 Shift Summary by [employer] Pt has rested most of the shift after EGD yesterday. She did eat 75% of her dinner @ 2130 - no sig nausea after dinner. She has denied ABD pain this shift. Pt has only had slight to mild nausea, and has denied nausea the 2nd half of the shift. She has been up to BSC x1 tonight - TX mod unsteady 2nd to weakness & FX RT humerus (In sling) - void - no incont episodes this shift. Saline lock to her LT wrist - flushed & patent. Pt continues to require O2 @ 2l via N/C to maintain O@ sats in the low 90's - all other VS - WNL. She is A&O x4 w/ min cueing for date & month -using call light appropriately. Pt is calm, pleasant, & cooperative. Initialized on 09/13/18 04:13 - END OF NOTE
--- NOTE | 2018-09-17 16:33 | Operative Note ---
DATE OF OPERATION: 09/12/2018 PREOPERATIVE DIAGNOSES: 1. Epigastric and chest pain. 2. Chronic severe nausea. POSTOPERATIVE DIAGNOSES: 1. Large hiatal hernia with severe reflux. 2. Functional gastroparesis with retained gastric fluid. 3. Distal esophagitis. PROCEDURE: Esophagogastroduodenoscopy with suction of 500 mL of gastric fluid from a dilated, poorly functioning stomach. SURGEON: Nia Reed MD. FINDINGS: Large hiatal hernia with large volume of retained gastric fluid filling over one-half of the stomach, including the intrathoracic portion. Free reflux into the distal esophagus with mild inflammation at the GE junction. Pylorus was widely patent and duodenum was patent extending to the third portion. DESCRIPTION OF PROCEDURE: The patient was left supine and her head was rotated to the left. Bite block was placed. A timeout procedure was carried out as per protocol. Endoscope was introduced through the bite block into the retropharynx and into the esophagus. The proximal esophagus appeared unremarkable. In the distal esophagus, there was some free reflux of a turbid, grayish fluid. This was suctioned. At the GE junction, there was mild inflammation, but there was no acute ulceration, no stricture web or ring. Upon entering the thoracic portion of the stomach, a large volume of the same fluid was suctioned. She was on sucralfate tablets, and these were seen to be floating in the gastric contents. As much of the fluid as possible was suctioned, and the scope was then pushed into the antral portion which was intra-abdominal. There was mild inflammation of the antral wall. A large volume of fluid was suctioned and the pylorus was noted. The pylorus was actually open, and the scope easily passed through the pylorus into the duodenum. There was no retained fluid in the duodenum. There was no major inflammation of the duodenum extending to the third portion. The scope was pulled back. The fluid was irrigated to dilute it and then all of the fluid that could be suctioned was suctioned. The rest of the wall of the abdominal and thoracic portions of the stomach did not reveal any other pathology. Peristalsis of the stomach was nonexistent during the entire procedure. The scope was removed. The patient tolerated the procedure well. She was awakened and transferred to the postanesthetic care unit in stable, satisfactory condition. LCS:rosio Job ID: [id number] Doc ID: [id number] Nia Reed M.D.
== END 2018-09-13 13:17 | disposition swing bed (61) | DRG 327 ==
LOC: ED 16:20 → MEDSUR 16:20
PROVIDERS: ADMIT Family Medicine Adult Medicine; ATTEND Family Medicine Adult Medicine

== ENCOUNTER 2019-05-08 14:52 | Inpatient (IN) ==
[2019-05-08] MEDS ORDERED: ONDANSETRON 4 MG ODT TABLET SL PRN (15:07)
[2019-05-08] MEDS: 0.9 % SODIUM CHLORIDE 2,000 ML IV SCH ×3 (15:48→18:46)
[2019-05-08] MEDS: ONDANSETRON 4 MG/2 ML VIAL IV PRN ×2 (15:48→22:20)
[2019-05-08] MEDS: cefTRIAXone 2 GM in DEXTROSE 5% IN WATER 50 ML IV SCH (15:48)
--- NOTE | 2019-05-08 15:57 | XRay Report ---
HISTORY: Hypotension and dehydration FINDINGS: Patient has a very large retrocardiac hiatus hernia, creating the appearance of severe cardiomegaly. This has not changed significantly since a prior CT done on 09/08/18. The bowel gas pattern is normal. Moderate amount calcified plaque is present in the aorta and iliac arteries. There is a moderate rotary scoliotic curvature with convexity to the left in the mid lumbar spine. Comparison with the prior exam from 05/03/19 shows no significant change. IMPRESSION: Large hiatus hernia. No acute abnormality Interpreted and Authenticated by: Antonio Garsia 05/08/19
--- NOTE | 2019-05-08 15:59 | XRay Report ---
HISTORY: Vomiting, hypotension and dehydration FINDINGS: Patient is a very large retrocardiac hiatus hernia. This is a chronic stable finding. There is blunting of the left costophrenic sulcus. There may be a small left-sided pleural effusion. There is no evidence of pneumonia. The heart is largely obscured by the hiatus hernia. No congestive heart failure is present. Calcified lymph nodes are present in the left hilum. There is an old healed fracture in the neck of the right humerus. A dextroscoliotic curvature is present in the midthoracic spine. IMPRESSION: Stable large hiatus hernia Possible small left-sided pleural effusion Interpreted and Authenticated by: Antonio Garsia 05/08/19
[2019-05-08 16:03] LABS: Basophils # (Auto) 0 K/mcL (0.0-0.3); Basophils % (Auto) 0.2 % (0.0-2.0); Eosinophils # (Auto) 0 K/mcL (0.0-0.7); Eosinophils % (Auto) 0.1 % (0.0-7.0); Granulocytes % (Auto) 75.9 % (38.0-78.0); Hematocrit 42.2 % (36.0-48.0); Hemoglobin 14.1 g/dL (12.0-15.0); Mean Cell Volume 89.6 fL (80.0-100.0); Mean Corpuscular HGB Conc 33.3 g/dL (31.0-36.0); Mean Platelet Volume 10.5 fL (7.4-10.4); Monocytes # (Auto) 0.6 K/mcL (0.1-0.9); Monocytes % (Auto) 8.8 % (1.0-12.0); Platelet Count 223 K/mcL (140-440); RBC 4.71 M/mcL (4.00-5.20); Red Cell Distribution Width 13.3 % (11.5-14.5); WBC 6.8 K/mcL (4.5-11.0)
[2019-05-08 16:25] LABS: Blood Urea Nitrogen 50 mg/dl (8-23); C-Reactive Protein 3.4 mg/dl (0.0-0.8); Calcium 9.5 mg/dl (8.6-10.4); Carbon Dioxide 22 mmol/L (22-30); Chloride 94 mmol/L (96-108); Glomerular Filtration Rate 33; Glucose 162 mg/dL (70-105); Phosphorous 5.4 mg/dL (2.7-4.5)
[2019-05-08] MEDS: 0.9 % SODIUM CHLORIDE 1,000 ML IV SCH (16:53)
--- NOTE | 2019-05-08 17:46 | General Surg History&Physical ---
History of Present Illness Patient information: Note initiated : 05/08/19 at 5:46 pm Service Date, if different from initiated Date: [] Patient: Maricruz Fang a 88 y/o F admitted on 05/08/19 for vomiting. Chief Complaint: [] HPI: Ms. Fang is a 88 year old F Medications and Allergies Home Medications Medication Instructions Recorded Confirmed Type cholecalciferol (vitamin D3) 1 tab PO QDAY 01/04/17 05/08/19 History ferrous gluconate 324 mg (36 mg 324 mg PO QDAY 01/04/17 05/08/19 History iron) tablet magnesium 1 tab PO QDAY 01/04/17 05/08/19 History potassium 1 tab PO QDAY 01/04/17 05/08/19 History vitamin B complex 1 tab-cap PO QDAY 01/04/17 05/08/19 History Pantoprazole [Protonix] 40 mg PO BIDAC #60 tab 09/16/18 05/08/19 Rx Sucralfate [Carafate] 1 gm PO Q6 #20 oral.susp 09/16/18 05/08/19 Rx lactobacillus combination no.8 PO QDAY 11/14/18 05/08/19 History melatonin PO PRN 11/14/18 05/08/19 History traMADol [Ultram] 50 mg PO Q6HP PRN #10 tab 05/03/19 05/08/19 Rx Ondansetron [Zofran ODT] 4 mg SL Q4-6HP PRN #20 tab 05/06/19 05/08/19 Rx sucralfate 1 gram tablet 1 g PO QID #120 tab 05/06/19 05/08/19 Rx Allergies Allergy/AdvReac Type Severity Reaction Status Date / Time Sulfa (Sulfonamide Allergy Severe Anaphylaxis Verified 05/08/19 14:33 Antibiotics) hydrocodone AdvReac Mild Other Verified 05/08/19 14:33 Exam Temp Pulse Resp BP Pulse Ox 97.3 F 85 18 135/67 96 05/08/19 16:54 05/08/19 16:54 05/08/19 16:54 05/08/19 16:54 05/08/19 16:54
[2019-05-08] MEDS: ESOMEPRAZOLE 40 MG VIAL IV SCH (18:08)
[2019-05-08] MEDS: SUCRALFATE 1 GM/10 ML ORAL.SUSP PO SCH (18:09)
[2019-05-08 18:39] LABS: Appearance,Urine CLEAR; Bacteria,Urine 0 /hpf (0); Bilirubin,Urine NEG (NEG); Color,Urine YELLOW; Culture Indicated,Urine NO; Glucose,Urine (UA) NEGATIVE (NEG); Ketones,Urine 20 mg/dL (NEG); Leukocyte Esterase,Urine NEG /uL (NEG); Mucus,Urine FEW /hpf (0); Nitrate,Urine NEG (NEG); Protein,Urine 30 mg/dL (NEG); Specific Gravity,Urine 1.026 (1.000-1.035); Urine Blood NEG mg/dL (<0.03); Urine Hyaline Cast 10 /lpf (0-2); Urine RBC 1 /hpf (0-1); Urine Squamous Epithelial Cell 0 /hpf (0-4); Urine WBC 0 /hpf (0-4); Urobilinogen,Urine NEG (NEG)
[2019-05-08] MEDS: PROMETHAZINE 25 MG/ML VIAL IV PRN (18:57)
[2019-05-08] MEDS: HEPARIN 5,000 UNIT/ML VIAL SQ SCH (21:41)
[2019-05-08] MEDS: 0.9 % SODIUM CHLORIDE 10 ML SYRINGE IV SCH (21:41)
[2019-05-09] MEDS ORDERED: DILTIAZEM 25 MG/5 ML VIAL IV SCH (01:07)
[2019-05-09] MEDS ORDERED: MEPERIDINE 50 MG/ML INJECTION ONE (01:17)
[2019-05-09] MEDS: 0.9 % SODIUM CHLORIDE 1,000 ML IV SCH ×3 (01:46→12:50)
[2019-05-09] MEDS: PROMETHAZINE 25 MG/ML VIAL IV PRN ×3 (03:58→23:41)
[2019-05-09] MEDS: SUCRALFATE 1 GM/10 ML ORAL.SUSP PO SCH ×7 (06:08→23:41)
[2019-05-09] MEDS: ONDANSETRON 4 MG/2 ML VIAL IV PRN ×2 (06:08→17:58)
[2019-05-09] MEDS: 0.9 % SODIUM CHLORIDE 10 ML SYRINGE IV SCH ×3 (06:09→20:26)
[2019-05-09 06:26] LABS: proBNP 605.9 pg/ml (0-450)
[2019-05-09] MEDS: ESOMEPRAZOLE 40 MG VIAL IV SCH ×2 (06:52→17:52)
[2019-05-09] MEDS: MEPERIDINE 50 MG/ML INJECTION IV PRN ×3 (07:18→20:22)
[2019-05-09] MEDS: HEPARIN 5,000 UNIT/ML VIAL SQ SCH ×2 (09:18→20:23)
[2019-05-09] MEDS: cefTRIAXone 2 GM in DEXTROSE 5% IN WATER 50 ML IV SCH (09:58)
[2019-05-09 13:46] LABS: Hematocrit 34.6 % (36.0-48.0); Hemoglobin 11.6 g/dL (12.0-15.0); Mean Cell Volume 89.7 fL (80.0-100.0); Mean Corpuscular HGB Conc 33.4 g/dL (31.0-36.0); Mean Platelet Volume 9.9 fL (7.4-10.4); Platelet Count 165 K/mcL (140-440); RBC 3.86 M/mcL (4.00-5.20); Red Cell Distribution Width 13.6 % (11.5-14.5); WBC 4.4 K/mcL (4.5-11.0)
[2019-05-09 14:01] LABS: Calcium 8.4 mg/dl (8.6-10.4); Carbon Dioxide 22 mmol/L (22-30); Chloride 105 mmol/L (96-108); Glucose 123 mg/dL (70-105)
[2019-05-09 14:18] LABS: Blood Urea Nitrogen 56 mg/dl (8-23); Glomerular Filtration Rate 40
[2019-05-09 14:53] LABS: Band Neutrophils % 9 % (0-10); Eosinophils % (Manual) 1 % (0-7); Lymphocytes % 22 % (15-49); Monocytes % (Manual) 10 % (1-12); Platelet Estimate NORMAL (NORMAL); RBC Morphology NORMAL (NORMAL); Reactive Lymphocytes 1 % (0-2); Segmented Neutrophils % 57 % (38-78)
--- NOTE | 2019-05-09 19:30 | General Surgery Progress Note ---
Subjective Patient reports: feels better, pain is less, tolerating liquids well, flatus, nausea, afebrile Narrative: Note initiated : 05/09/19 at 7:27 pm Service Date, if different from initiated Date: [] Patient: Maricruz Fang 88 y/o F admitted on 05/08/19 for vomiting. Chief Complaint: [Patient is clinically improved. Her vital signs are totally stable. Her tachycardia has resolved. She is afebrile. She now wants to start clear liquids. Potassium 2.8, BUN 56, creatinine 1.2, CRP 3.4, BNP 605, troponin less than 0.012] Objective Temp Pulse Resp BP Pulse Ox 97.7 F 87 16 131/76 96 05/09/19 16:00 05/09/19 10:35 05/09/19 16:00 05/09/19 16:00 05/09/19 16:00 - Additional Data Intake & Output - Last 24 hours: Intake & Output 05/07/19 05/08/19 05/09/19 05/10/19 05:59 05:59 05:59 05:59 Intake Total 3350 1526 Output Total 725 200 Balance 2625 1326 Weight 128 lb 128 lb - General physical appearance moderate distress, moderate pain, chronically ill - Eyes PERRL, normal ocular movement - ENT normal pinna, normal nares, normal mucosa, no hearing loss, no congestion - Neck no masses, no bruits, trachea midline, no lymphadenopathy, no venous distension - Respiratory normal expansion, normal respiratory effort, clear to auscultation - Cardiovascular Cardiovascular exam: Present: normal rate and rhythm, RRR, +S1, +S2. Absent: JVD, tachycardia - Abdomen tender (epigastric tenderness; good active bowel sounds) - Integumentary no rash, no growths, no abnormal pigmentation - Neurologic normal coordination, normal sensation - Musculoskeletal normal gait, normal posture - Psychiatric oriented to time, oriented to person, oriented to place, speech is normal, memory intact - Labs 05/09/19 13:06 05/09/19 13:06 Diabetes panel 05/09/19 Range/Units 13:06 Sodium 144 (133-145) mmol/L Potassium 2.8 L* (3.3-5.1) mmol/L Chloride 105 (96-108) mmol/L Carbon Dioxide 22 (22-30) mmol/L BUN 56 H (8-23) mg/dl Creatinine 1.2 H (0.6-1.1) mg/dl Glucose 123 H (70-105) mg/dL Calcium 8.4 L (8.6-10.4) mg/dl Calcium panel 05/09/19 Range/Units 13:06 Calcium 8.4 L (8.6-10.4) mg/dl Pituitary panel 05/09/19 Range/Units 13:06 Sodium 144 (133-145) mmol/L Potassium 2.8 L* (3.3-5.1) mmol/L Chloride 105 (96-108) mmol/L Carbon Dioxide 22 (22-30) mmol/L BUN 56 H (8-23) mg/dl Creatinine 1.2 H (0.6-1.1) mg/dl Glucose 123 H (70-105) mg/dL Calcium 8.4 L (8.6-10.4) mg/dl Adrenal panel 05/09/19 Range/Units 13:06 Sodium 144 (133-145) mmol/L Potassium 2.8 L* (3.3-5.1) mmol/L Chloride 105 (96-108) mmol/L Carbon Dioxide 22 (22-30) mmol/L BUN 56 H (8-23) mg/dl Creatinine 1.2 H (0.6-1.1) mg/dl Glucose 123 H (70-105) mg/dL Calcium 8.4 L (8.6-10.4) mg/dl Assessment and Plan (1) Nausea and vomiting in adult Status: Acute Current Visit: Yes (2) Dehydration Status: Acute Current Visit: Yes (3) [id number] kidney injury Status: Acute Current Visit: Yes (4) 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
[2019-05-09] MEDS ORDERED: POTASSIUM PHOSPHATE 66 MEQ/15 ML VIAL IV ONE (21:12)
[2019-05-09] MEDS: DICYCLOMINE 20 MG TABLET PO SCH (21:16)
[2019-05-10] MEDS: MEPERIDINE 50 MG/ML INJECTION IV PRN ×2 (00:46→07:07)
[2019-05-10] MEDS ORDERED: fentaNYL 100 MCG/2 ML VIAL IV PRN (01:02)
[2019-05-10] MEDS ORDERED: fentaNYL 100 MCG/2 ML VIAL IV ONE ×2 (01:21→05:07)
[2019-05-10] MEDS: POTASSIUM PHOSPHATE 40 MEQ in DEXTROSE 5% IN WATER 500 ML IV SCH ×2 (01:30→01:31)
[2019-05-10] MEDS ORDERED: POTASSIUM PHOSPHATE 66 MEQ/15 ML VIAL IV ONE (01:43)
[2019-05-10] MEDS: SUCRALFATE 1 GM/10 ML ORAL.SUSP PO SCH ×3 (05:06→17:37)
[2019-05-10] MEDS: 0.9 % SODIUM CHLORIDE 1,000 ML IV SCH ×3 (05:16→19:33)
[2019-05-10] MEDS: 0.9 % SODIUM CHLORIDE 10 ML SYRINGE IV SCH ×2 (05:17→12:54)
[2019-05-10 06:37] LABS: Basophils # (Auto) 0 K/mcL (0.0-0.3); Basophils % (Auto) 0.1 % (0.0-2.0); Eosinophils # (Auto) 0 K/mcL (0.0-0.7); Eosinophils % (Auto) 0.7 % (0.0-7.0); Granulocytes % (Auto) 75.4 % (38.0-78.0); Hematocrit 35.2 % (36.0-48.0); Hemoglobin 11.7 g/dL (12.0-15.0); Lymphocytes # (Auto) 0.5 K/mcL (1.5-4.8); Lymphocytes % (Auto) 8.4 % (15.5-49.0); Mean Cell Volume 89.3 fL (80.0-100.0); Mean Corpuscular HGB Conc 33.1 g/dL (31.0-36.0); Mean Platelet Volume 9.8 fL (7.4-10.4); Monocytes # (Auto) 0.9 K/mcL (0.1-0.9); Monocytes % (Auto) 15.4 % (1.0-12.0); Platelet Count 230 K/mcL (140-440); RBC 3.94 M/mcL (4.00-5.20); WBC 5.7 K/mcL (4.5-11.0)
[2019-05-10 06:40] LABS: ALT/SGPT 13 U/l (0-40); AST/SGOT 12 U/l (0-37); Albumin 3.1 gm/dL (3.2-5.2); Albumin/Globulin Ratio 1.1 (1.0-2.3); Alkaline Phosphatase 53 U/L (39-117); Bilirubin,Direct < 0.2 mg/dL (0.0-0.3); Bilirubin,Total < 0.2 mg/dL (0.0-1.0); Blood Urea Nitrogen 48 mg/dl (8-23); Calcium 8.3 mg/dl (8.6-10.4); Carbon Dioxide 18 mmol/L (22-30); Chloride 99 mmol/L (96-108); Globulin 2.7 gm/dL (2.2-3.7); Glomerular Filtration Rate 33; Glucose 208 mg/dL (70-105); Lactate Dehydrogenase 169 U/L (94-250); Phosphorous 7.8 mg/dL (2.7-4.5); Triglycerides 106 mg/dl (<150)
[2019-05-10] MEDS: ESOMEPRAZOLE 40 MG VIAL IV SCH ×2 (07:09→16:41)
[2019-05-10] MEDS ORDERED: NALOXONE HCL 0.4 MG/ML VIAL IV PRN (07:23)
[2019-05-10] MEDS ORDERED: fentaNYL 50 MCG PATCH TOPICAL SCH (07:30)
[2019-05-10] MEDS: DICYCLOMINE 20 MG TABLET PO SCH ×3 (08:20→16:40)
[2019-05-10] MEDS: HEPARIN 5,000 UNIT/ML VIAL SQ SCH (08:21)
[2019-05-10] MEDS: ONDANSETRON 4 MG/2 ML VIAL IV PRN (08:35)
[2019-05-10] MEDS: cefTRIAXone 2 GM in DEXTROSE 5% IN WATER 50 ML IV SCH (08:35)
[2019-05-10] MEDS ORDERED: SCOPOLAMINE 1 PATCH PATCH TOPICAL SCH (09:00)
[2019-05-10] MEDS: PROMETHAZINE 25 MG/ML VIAL IV PRN (10:17)
[2019-05-10] MEDS: METOCLOPRAMIDE 10 MG/2 ML VIAL IV SCH ×2 (10:17→17:37)
--- NOTE | 2019-05-10 12:47 | General Surgery Progress Note ---
Subjective Patient reports: feels better, pain is less, tolerating liquids well, flatus, afebrile Narrative: Note initiated : 05/10/19 at 12:45 pm Service Date, if different from initiated Date: [] Patient: Maricruz Fang 88 y/o F admitted on 05/08/19 for vomiting. Chief Complaint: [patient feels better. She still has moaning and complaining of pain however clinically she appears to be stable and is sleeping most of the time. White blood count 5.7, hemoglobin 11.7, lactic acid 1.2, potassium 3.6, BUN 48, creatinine 1.] Objective Temp Pulse Resp BP Pulse Ox 98.6 F 109 H 19 96/66 94 05/10/19 10:00 05/10/19 10:00 05/10/19 10:00 05/10/19 10:00 05/10/19 10:00 - Additional Data Intake & Output - Last 24 hours: Intake & Output 05/08/19 05/09/19 05/10/19 05/11/19 05:59 05:59 05:59 05:59 Intake Total 3350 2986 694 Output Total 725 475 Balance 2625 2511 694 Weight 128 lb 130 lb - General physical appearance moderate distress, moderate pain, chronically ill - Eyes PERRL, normal ocular movement - ENT normal pinna, normal nares, normal mucosa, no hearing loss, no congestion - Neck no masses, no bruits, trachea midline, no lymphadenopathy, no venous distension - Respiratory normal expansion, normal respiratory effort, clear to auscultation - Cardiovascular Cardiovascular exam: Present: normal rate and rhythm, RRR, +S1, +S2. Absent: JVD, tachycardia - Abdomen non tender (no tenderness to palpation of abdomen at this time; good active bowel sounds), bowel sounds (present), surgical scars (none), masses (none) - Integumentary no rash, no growths, no abnormal pigmentation - Neurologic normal coordination, normal sensation - Musculoskeletal normal gait, normal posture - Psychiatric oriented to time, oriented to person, oriented to place, speech is normal, memory intact - Labs 05/10/19 05:00 05/10/19 05:00 Diabetes panel 05/09/19 05/10/19 Range/Units 13:06 05:00 Sodium 144 134 (133-145) mmol/L Potassium 2.8 L* 3.6 (3.3-5.1) mmol/L Chloride 105 99 (96-108) mmol/L Carbon Dioxide 22 18 L (22-30) mmol/L BUN 56 H 48 H (8-23) mg/dl Creatinine 1.2 H 1.4 H (0.6-1.1) mg/dl Glucose 123 H 208 H (70-105) mg/dL Calcium 8.4 L 8.3 L (8.6-10.4) mg/dl AST 12 (0-37) U/l ALT 13 (0-40) U/l Alkaline Phosphatase 53 (39-117) U/L Total Protein 5.8 L (5.9-8.4) gm/dL Albumin 3.1 L (3.2-5.2) gm/dL Triglycerides 106 (<150) mg/dl Calcium panel 05/09/19 05/10/19 Range/Units 13:06 05:00 Calcium 8.4 L 8.3 L (8.6-10.4) mg/dl Phosphorus 7.8 H* (2.7-4.5) mg/dL Albumin 3.1 L (3.2-5.2) gm/dL Pituitary panel 05/09/19 05/10/19 Range/Units 13:06 05:00 Sodium 144 134 (133-145) mmol/L Potassium 2.8 L* 3.6 (3.3-5.1) mmol/L Chloride 105 99 (96-108) mmol/L Carbon Dioxide 22 18 L (22-30) mmol/L BUN 56 H 48 H (8-23) mg/dl Creatinine 1.2 H 1.4 H (0.6-1.1) mg/dl Glucose 123 H 208 H (70-105) mg/dL Calcium 8.4 L 8.3 L (8.6-10.4) mg/dl Adrenal panel 05/09/19 05/10/19 Range/Units 13:06 05:00 Sodium 144 134 (133-145) mmol/L Potassium 2.8 L* 3.6 (3.3-5.1) mmol/L Chloride 105 99 (96-108) mmol/L Carbon Dioxide 22 18 L (22-30) mmol/L BUN 56 H 48 H (8-23) mg/dl Creatinine 1.2 H 1.4 H (0.6-1.1) mg/dl Glucose 123 H 208 H (70-105) mg/dL Calcium 8.4 L 8.3 L (8.6-10.4) mg/dl Total Bilirubin < 0.2 (0.0-1.0) mg/dL AST 12 (0-37) U/l ALT 13 (0-40) U/l Alkaline Phosphatase 53 (39-117) U/L Total Protein 5.8 L (5.9-8.4) gm/dL Albumin 3.1 L (3.2-5.2) gm/dL Assessment and Plan (1) Nausea and vomiting in adult Status: Acute Assessment and plan: Patient is clinically improved Current Visit: Yes (2) Dehydration Status: Acute Assessment and plan: Dehydration is gradually improving Current Visit: Yes (3) [id number] kidney injury Status: Acute Current Visit: Yes (4) 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
--- NOTE | 2019-06-06 17:20 | Discharge Summary ---
Providers - Providers Patient information: Note initiated : 06/06/19 at 5:19 pm Service Date, if different from initiated Date: [] Patient: Maricruz Fang 88 y/o F admitted on 05/08/19 for vomiting. Chief Complaint: [] Date of admission: 05/08/19 Discharge date: 06/09/19 Attending physician: Nia Reed Hospitalization Hospital Course: 88-year-old female who was brought to the office in critical condition. She gives a history of being symptomatic for over a month. She had nausea and vomiting with inability to take food or liquids for over a week. She appeared clinically ill and very dehydrated. In the office, we were unable to get blood pressure reading and she had a very fine thready pulse about 120. Patient has a history of gastroparesis and gastroesophageal reflux disease. Due to a large diaphragmatic hernia. She was last evaluated in our office on October 2018. Patient had improved. However, she had not taken her medication for at least 3 weeks. She was seen in [facility] on 09 April and in the emergency room on and April with similar complaints. The patient's son found her on the floor and brought her to the office. She was admitted as a direct emergency admission, primarily for control of nausea vomiting and dehydration. Patient was treated with anti-emetics, and given IV fluids. She was also given PPIs. She appeared to be gradually improving and her labs show improvement in her dehydration. Her acute on chronic kidney injury was also improving. When seen on evening rounds, she was feeling better but was complaining of pain. She stated repeatedly that she wished to . This had been discussed with her son. The patient was found on rounds by the nursing staff with emesis of a large volume emesis. She had obviously aspirated and had inability to breathe. The nursing staff, probably called a code white but during this time, her pupils became fixed and dilated and she was having copious volumes of emesis from her mouth and nose. Telemetry was done and it showed ventricular tachycardia. She was a no code and no intubation. She did not respond to supportive treatment. She lost her pulse and heart rhythm and was apneic. I was contacted and advised the nursing staff to pronounce her and to contact her son. Discharge diagnosis: acute pulmonary aspiration with hypoxemia Secondary discharge diagnosis: Acute on chronic kidney failure. Severe dehydration. Recurrent nausea and vomiting. Gastroesophageal reflux Reason for admission: severe dehydration and hypotension Procedures: None Pertinent studies/significant findings: None Complications: Patient had uncontrolled nausea and vomiting with massive aspiration of gastric contents, leading to acute respiratory failure and cardiac arrest. No resuscitation was carried out at her request Exam Temp Pulse Resp BP Pulse Ox 98.7 F 0 L 0 L 0/0 0 L 05/10/19 20:00 05/10/19 22:27 05/10/19 22:27 05/10/19 22:27 05/10/19 22:27 - General physical appearance other (the patient was totally unresponsive and pulseless without heart rhythm and without respirations.) Discharge Plan - Patient/Caregiver Discharge Instructions [facility] Diet: NPO - Follow up Plan Disposition: Prognosis: Rehab Potential: Undetermined I certify that the patient requires SNF services.: No Overall status at discharge: other (patient is ) Pending Studies Diet Clear Liquid Diet Start SunMay 09 1931 Shift Summary 05/10/19 17:25 Shift Summary by Marilu Meadows Took over pt care at 1500. Continues to have nausea and abdominal pain. Has scope patch behind right ear, fentanyl patch right arm. O2 2L NC, Benjamin catheter. IV right wrist and left ac. NS @ 75. Initialized on 05/10/19 17:25 - END OF NOTE
== END 2019-05-10 22:01 | disposition expired | DRG 641 ==
LOC: MEDSUR 14:52 → PREOBSVTOIN 15:10
PROVIDERS: ADMIT Family Medicine Adult Medicine; ATTEND Family Medicine Adult Medicine